=== PATIENT | male | born 1945 | race African-American/Black ===

== ENCOUNTER 2022-08-07 12:11 | Inpatient (IN) | payer OTHER ==
[2022-08-07 14:59] VITALS: BMI 23.7
[2022-08-07] MEDS ORDERED: NICOTINE 10 MG CARTRIDGE (INHALER) IH PRN (16:04)
[2022-08-07] MEDS ORDERED: LOPERAMIDE HCL 2 MG CAPSULE PO PRN (16:04)
[2022-08-07] MEDS ORDERED: ACETAMINOPHEN 325 MG TABLET (FP) PO PRN (16:04)
[2022-08-07] MEDS ORDERED: MAGNESIUM HYDROX 2400MG/30ML ORAL SUSPENSION 30 ML CUP PO PRN (16:04)
[2022-08-07] MEDS ORDERED: P-EPHED 60MG/TRIPROLIDI 2.5MG TABLET PO PRN (16:04)
[2022-08-07] MEDS ORDERED: IBUPROFEN 400 MG TABLET (FP) PO PRN (16:04)
[2022-08-07] MEDS ORDERED: guaiFENesin 200 MG/10 ML 10 ML UNIT-DOSE CUPS PO PRN (16:04)
[2022-08-07] MEDS ORDERED: MAGNESIUM CITRATE 300 ML BOTTLE PO PRN (16:04)
[2022-08-07] MEDS ORDERED: hydrOXYzine PAMOATE 25 MG CAPSULE (FP) PO PRN (16:04)
[2022-08-07] MEDS ORDERED: MELATONIN 5 MG TABLETS PO SCH (22:00)
[2022-08-07] MEDS: PRENATAL VITAMINS W/ FOLIC ACID TABLET (FP) PO SCH (22:06)
[2022-08-07] MEDS: THIAMINE HCL 100 MG TABLET (FP) PO SCH (22:06)
[2022-08-07] MEDS: NICOTINE 21 MG/24 HOURS TOPICAL PATCH TD SCH (22:06)
[2022-08-08 10:39] LABS: BLOOD UREA NITROGEN 15.3 mg/dL (7-18); CALCIUM 9.3 mg/dL (8.5-10.1)
[2022-08-08 10:40] LABS: ALBUMIN 3.8 g/dl (3.4-5.0); HEMATOCRIT 40.7 % (35.4-49); HEMOGLOBIN 14.1 GM/dL (11.7-16.9); MCH 30.1 pg (25.7-33.7); MCHC 34.7 g/dl (32.0-35.9); MEAN CELL VOLUME 86.6 fl (80-96); MEAN PLT VOLUME 8.7 fl (7.5-11.1); PLATELET COUNT 185 10^3/uL (134-434); RDW 13.5 % (11.9-15.9); WHITE BLOOD COUNT 4.4 K/mm3 (4.0-10.0)
[2022-08-08 10:43] LABS: CREATININE 0.9 mg/dL (0.55-1.3)
[2022-08-08 10:45] LABS: BILIRUBIN,TOTAL 0.4 mg/dL (0.2-1); TOT PROT 6.8 g/dl (6.4-8.2)
[2022-08-08 10:56] LABS: EPI CELLS 4 /uL (0-25.1); HYALINE CASTS 1 /uL (0-3.1); PH,URINE 6.5 (5.0-8.0); URINE APPEARANCE CLEAR; URINE BACTERIA 4 /uL (0-1359); URINE BILIRUBIN NEGATIVE (NEGATIVE); URINE COLOR YELLOW; URINE GLUCOSE (UA) NEGATIVE (NEGATIVE); URINE KETONE NEGATIVE (NEGATIVE); URINE LEUK ESTERASE TRACE (NEGATIVE); URINE NITRITE NEGATIVE (NEGATIVE); URINE PROTEIN NEGATIVE (NEGATIVE); URINE RBC 2 /uL (0-23.9); URINE WBC 32 /uL (0-25.8)
[2022-08-08] MEDS: PRENATAL VITAMINS W/ FOLIC ACID TABLET (FP) PO SCH ×2 (11:14→11:20)
[2022-08-08] MEDS: NICOTINE 21 MG/24 HOURS TOPICAL PATCH TD SCH ×2 (11:14→11:20)
[2022-08-08 12:25] LABS: SYPHILIS W/ RPR CONF NON-REACTIVE (NONREACTIVE)
[2022-08-08] MEDS: ATENOLOL 50 MG TABLET (FP) PO SCH (18:57)
[2022-08-08] MEDS: THIAMINE HCL 100 MG TABLET (FP) PO SCH (21:20)
[2022-08-08] MEDS: traZODone HCL 50 MG TABLET (FP) PO SCH (21:21)
[2022-08-09] MEDS: PRENATAL VITAMINS W/ FOLIC ACID TABLET (FP) PO SCH (10:33)
[2022-08-09] MEDS: ATENOLOL 50 MG TABLET (FP) PO SCH (10:33)
[2022-08-09] MEDS: NICOTINE 21 MG/24 HOURS TOPICAL PATCH TD SCH (10:33)
[2022-08-09] MEDS: THIAMINE HCL 100 MG TABLET (FP) PO SCH (21:39)
[2022-08-09] MEDS: traZODone HCL 50 MG TABLET (FP) PO SCH (21:39)
[2022-08-10] MEDS: PRENATAL VITAMINS W/ FOLIC ACID TABLET (FP) PO SCH (10:20)
[2022-08-10] MEDS: NICOTINE 21 MG/24 HOURS TOPICAL PATCH TD SCH (10:21)
[2022-08-10] MEDS: ATENOLOL 50 MG TABLET (FP) PO SCH (10:21)
[2022-08-10] MEDS: THIAMINE HCL 100 MG TABLET (FP) PO SCH (21:15)
[2022-08-10] MEDS: traZODone HCL 50 MG TABLET (FP) PO SCH (21:16)
[2022-08-11] MEDS: PRENATAL VITAMINS W/ FOLIC ACID TABLET (FP) PO SCH (09:43)
[2022-08-11] MEDS: NICOTINE 21 MG/24 HOURS TOPICAL PATCH TD SCH (09:44)
[2022-08-11] MEDS: ATENOLOL 50 MG TABLET (FP) PO SCH ×2 (09:44→14:48)
[2022-08-11] MEDS: traZODone HCL 50 MG TABLET (FP) PO SCH (21:33)
[2022-08-11] MEDS: THIAMINE HCL 100 MG TABLET (FP) PO SCH (21:33)
[2022-08-12] MEDS: ATENOLOL 50 MG TABLET (FP) PO SCH (10:20)
[2022-08-12] MEDS: PRENATAL VITAMINS W/ FOLIC ACID TABLET (FP) PO SCH (10:20)
[2022-08-12] MEDS: NICOTINE 21 MG/24 HOURS TOPICAL PATCH TD SCH (10:21)
[2022-08-12] MEDS: traZODone HCL 50 MG TABLET (FP) PO SCH (21:31)
[2022-08-12] MEDS: THIAMINE HCL 100 MG TABLET (FP) PO SCH (21:31)
[2022-08-13] MEDS: PRENATAL VITAMINS W/ FOLIC ACID TABLET (FP) PO SCH (10:31)
[2022-08-13] MEDS: NICOTINE 21 MG/24 HOURS TOPICAL PATCH TD SCH (10:31)
[2022-08-13] MEDS: ATENOLOL 50 MG TABLET (FP) PO SCH (10:33)
[2022-08-13] MEDS: THIAMINE HCL 100 MG TABLET (FP) PO SCH (21:27)
[2022-08-13] MEDS: traZODone HCL 50 MG TABLET (FP) PO SCH (21:27)
[2022-08-14] MEDS: MAG HYDROX/AL HYDROX/SIMETH 30 ML UNIT-DOSE CUP PO PRN (08:47)
[2022-08-14] MEDS: NICOTINE 21 MG/24 HOURS TOPICAL PATCH TD SCH (09:46)
[2022-08-14] MEDS: ATENOLOL 50 MG TABLET (FP) PO SCH (09:47)
[2022-08-14] MEDS: PRENATAL VITAMINS W/ FOLIC ACID TABLET (FP) PO SCH (09:47)
[2022-08-14] MEDS: traZODone HCL 50 MG TABLET (FP) PO SCH (21:20)
[2022-08-14] MEDS: THIAMINE HCL 100 MG TABLET (FP) PO SCH (21:20)
[2022-08-15] MEDS: PRENATAL VITAMINS W/ FOLIC ACID TABLET (FP) PO SCH (10:32)
[2022-08-15] MEDS: ATENOLOL 50 MG TABLET (FP) PO SCH (10:33)
[2022-08-15] MEDS: NICOTINE 21 MG/24 HOURS TOPICAL PATCH TD SCH (10:33)
[2022-08-15] MEDS: THIAMINE HCL 100 MG TABLET (FP) PO SCH (21:29)
[2022-08-15] MEDS: traZODone HCL 50 MG TABLET (FP) PO SCH (21:30)
[2022-08-16] MEDS: PRENATAL VITAMINS W/ FOLIC ACID TABLET (FP) PO SCH (10:18)
[2022-08-16] MEDS: ATENOLOL 50 MG TABLET (FP) PO SCH (10:18)
[2022-08-16] MEDS: NICOTINE 21 MG/24 HOURS TOPICAL PATCH TD SCH (10:18)
[2022-08-16] MEDS: THIAMINE HCL 100 MG TABLET (FP) PO SCH (21:18)
[2022-08-16] MEDS: traZODone HCL 50 MG TABLET (FP) PO SCH (21:18)
[2022-08-17] MEDS: NICOTINE 21 MG/24 HOURS TOPICAL PATCH TD SCH (10:14)
[2022-08-17] MEDS: PRENATAL VITAMINS W/ FOLIC ACID TABLET (FP) PO SCH (10:15)
[2022-08-17] MEDS: ATENOLOL 50 MG TABLET (FP) PO SCH (10:15)
[2022-08-17] MEDS: THIAMINE HCL 100 MG TABLET (FP) PO SCH (21:17)
[2022-08-17] MEDS: traZODone HCL 50 MG TABLET (FP) PO SCH (21:17)
[2022-08-18] MEDS: PRENATAL VITAMINS W/ FOLIC ACID TABLET (FP) PO SCH (09:35)
[2022-08-18] MEDS: NICOTINE 21 MG/24 HOURS TOPICAL PATCH TD SCH (09:35)
[2022-08-18] MEDS: ATENOLOL 50 MG TABLET (FP) PO SCH (09:36)
[2022-08-18] MEDS: traZODone HCL 50 MG TABLET (FP) PO SCH (21:38)
[2022-08-18] MEDS: THIAMINE HCL 100 MG TABLET (FP) PO SCH (21:38)
[2022-08-19] MEDS: PRENATAL VITAMINS W/ FOLIC ACID TABLET (FP) PO SCH (09:58)
[2022-08-19] MEDS: NICOTINE 21 MG/24 HOURS TOPICAL PATCH TD SCH (09:58)
[2022-08-19] MEDS: ATENOLOL 50 MG TABLET (FP) PO SCH (09:59)
[2022-08-19] MEDS: THIAMINE HCL 100 MG TABLET (FP) PO SCH (21:16)
[2022-08-19] MEDS: traZODone HCL 50 MG TABLET (FP) PO SCH (21:16)
[2022-08-20] MEDS: ATENOLOL 50 MG TABLET (FP) PO SCH (09:44)
[2022-08-20] MEDS: PRENATAL VITAMINS W/ FOLIC ACID TABLET (FP) PO SCH (09:44)
[2022-08-20] MEDS: NICOTINE 21 MG/24 HOURS TOPICAL PATCH TD SCH (09:45)
[2022-08-20] MEDS: traZODone HCL 50 MG TABLET (FP) PO SCH (21:05)
[2022-08-20] MEDS: THIAMINE HCL 100 MG TABLET (FP) PO SCH (21:05)
[2022-08-21] MEDS: NICOTINE 21 MG/24 HOURS TOPICAL PATCH TD SCH (09:49)
[2022-08-21] MEDS: PRENATAL VITAMINS W/ FOLIC ACID TABLET (FP) PO SCH (09:49)
[2022-08-21] MEDS: ATENOLOL 50 MG TABLET (FP) PO SCH (12:26)
[2022-08-21] MEDS: THIAMINE HCL 100 MG TABLET (FP) PO SCH (21:50)
[2022-08-21] MEDS: traZODone HCL 50 MG TABLET (FP) PO SCH (21:50)
[2022-08-22] MEDS: ATENOLOL 50 MG TABLET (FP) PO SCH (09:54)
[2022-08-22] MEDS: PRENATAL VITAMINS W/ FOLIC ACID TABLET (FP) PO SCH (09:55)
[2022-08-22] MEDS: NICOTINE 21 MG/24 HOURS TOPICAL PATCH TD SCH (09:55)
[2022-08-22] MEDS: traZODone HCL 50 MG TABLET (FP) PO SCH (21:05)
[2022-08-22] MEDS: THIAMINE HCL 100 MG TABLET (FP) PO SCH (21:05)
[2022-08-23] MEDS: PRENATAL VITAMINS W/ FOLIC ACID TABLET (FP) PO SCH (10:11)
[2022-08-23] MEDS: ATENOLOL 50 MG TABLET (FP) PO SCH (10:11)
[2022-08-23] MEDS: NICOTINE 21 MG/24 HOURS TOPICAL PATCH TD SCH (10:11)
[2022-08-23] MEDS: THIAMINE HCL 100 MG TABLET (FP) PO SCH (21:08)
[2022-08-23] MEDS: traZODone HCL 50 MG TABLET (FP) PO SCH (21:08)
[2022-08-24] MEDS: PRENATAL VITAMINS W/ FOLIC ACID TABLET (FP) PO SCH (09:34)
[2022-08-24] MEDS: NICOTINE 21 MG/24 HOURS TOPICAL PATCH TD SCH (09:34)
[2022-08-24] MEDS: ATENOLOL 50 MG TABLET (FP) PO SCH (09:36)
[2022-08-24] MEDS: THIAMINE HCL 100 MG TABLET (FP) PO SCH (21:05)
[2022-08-24] MEDS: traZODone HCL 50 MG TABLET (FP) PO SCH (21:05)
[2022-08-25] MEDS: PRENATAL VITAMINS W/ FOLIC ACID TABLET (FP) PO SCH (09:43)
[2022-08-25] MEDS: ATENOLOL 50 MG TABLET (FP) PO SCH (09:43)
[2022-08-25] MEDS: NICOTINE 21 MG/24 HOURS TOPICAL PATCH TD SCH (09:44)
[2022-08-25] MEDS: traZODone HCL 50 MG TABLET (FP) PO SCH (21:20)
[2022-08-25] MEDS: THIAMINE HCL 100 MG TABLET (FP) PO SCH (21:20)
[2022-08-26] MEDS: ATENOLOL 50 MG TABLET (FP) PO SCH (09:47)
[2022-08-26] MEDS: PRENATAL VITAMINS W/ FOLIC ACID TABLET (FP) PO SCH (09:47)
[2022-08-26] MEDS: NICOTINE 21 MG/24 HOURS TOPICAL PATCH TD SCH (09:47)
[2022-08-26] MEDS: MAG HYDROX/AL HYDROX/SIMETH 30 ML UNIT-DOSE CUP PO PRN (19:41)
[2022-08-26] MEDS: THIAMINE HCL 100 MG TABLET (FP) PO SCH (21:26)
[2022-08-26] MEDS: traZODone HCL 50 MG TABLET (FP) PO SCH (21:26)
[2022-08-27] MEDS: PRENATAL VITAMINS W/ FOLIC ACID TABLET (FP) PO SCH (09:56)
[2022-08-27] MEDS: NICOTINE 21 MG/24 HOURS TOPICAL PATCH TD SCH (09:57)
[2022-08-27] MEDS: ATENOLOL 50 MG TABLET (FP) PO SCH (09:57)
[2022-08-27] MEDS: THIAMINE HCL 100 MG TABLET (FP) PO SCH (21:26)
[2022-08-27] MEDS: traZODone HCL 50 MG TABLET (FP) PO SCH (21:27)
[2022-08-28] MEDS: NICOTINE 21 MG/24 HOURS TOPICAL PATCH TD SCH (09:41)
[2022-08-28] MEDS: PRENATAL VITAMINS W/ FOLIC ACID TABLET (FP) PO SCH (09:41)
[2022-08-28] MEDS: ATENOLOL 50 MG TABLET (FP) PO SCH (09:42)
[2022-08-28] MEDS: traZODone HCL 50 MG TABLET (FP) PO SCH (21:10)
[2022-08-28] MEDS: THIAMINE HCL 100 MG TABLET (FP) PO SCH (21:11)
[2022-08-29] MEDS: ATENOLOL 50 MG TABLET (FP) PO SCH (10:21)
[2022-08-29] MEDS: PRENATAL VITAMINS W/ FOLIC ACID TABLET (FP) PO SCH (10:21)
[2022-08-29] MEDS: NICOTINE 21 MG/24 HOURS TOPICAL PATCH TD SCH (10:21)
[2022-08-29] MEDS ORDERED: CLOPIDOGREL BISULFATE 300 MG TABLET PO SCH (10:30)
[2022-08-29] MEDS: THIAMINE HCL 100 MG TABLET (FP) PO SCH (21:02)
[2022-08-29] MEDS: traZODone HCL 50 MG TABLET (FP) PO SCH (21:02)
[2022-08-30] MEDS: PRENATAL VITAMINS W/ FOLIC ACID TABLET (FP) PO SCH (10:12)
[2022-08-30] MEDS: NICOTINE 21 MG/24 HOURS TOPICAL PATCH TD SCH (10:12)
[2022-08-30] MEDS: ATENOLOL 50 MG TABLET (FP) PO SCH (10:13)
[2022-08-30] MEDS: CLOPIDOGREL BISULFATE 75 MG TABLET (FP) PO SCH (10:13)
[2022-08-30] MEDS: traZODone HCL 50 MG TABLET (FP) PO SCH (21:09)
[2022-08-30] MEDS: THIAMINE HCL 100 MG TABLET (FP) PO SCH (21:09)
[2022-08-31] MEDS: CLOPIDOGREL BISULFATE 75 MG TABLET (FP) PO SCH (09:56)
[2022-08-31] MEDS: NICOTINE 21 MG/24 HOURS TOPICAL PATCH TD SCH (09:56)
[2022-08-31] MEDS: PRENATAL VITAMINS W/ FOLIC ACID TABLET (FP) PO SCH (09:57)
[2022-08-31] MEDS: ATENOLOL 50 MG TABLET (FP) PO SCH (09:57)
[2022-08-31] MEDS: THIAMINE HCL 100 MG TABLET (FP) PO SCH (21:03)
[2022-08-31] MEDS: traZODone HCL 50 MG TABLET (FP) PO SCH (21:03)
[2022-09-01 06:49] VITALS: RESP 18
[2022-09-01 09:08] VITALS: BP 117/62; PULSE 83; TEMP 97.7
[2022-09-01] MEDS: NICOTINE 21 MG/24 HOURS TOPICAL PATCH TD SCH (09:57)
[2022-09-01] MEDS: CLOPIDOGREL BISULFATE 75 MG TABLET (FP) PO SCH (09:57)
[2022-09-01] MEDS: PRENATAL VITAMINS W/ FOLIC ACID TABLET (FP) PO SCH (09:58)
[2022-09-01] MEDS: ATENOLOL 50 MG TABLET (FP) PO SCH (09:58)
== END 2022-09-01 10:48 | disposition home or self-care (01) | DRG 895 ==
LOC: YASAS 12:11 → Y3W 20:47
PROVIDERS: ADMIT Allergy & Immunology; ATTEND Psychiatry & Neurology Pain Medicine
PROC: HZ42ZZZ Group Counseling for Substance Abuse Treatment, Cognitive-Behavioral (ICD-10-PCS; principal; 2022-08-07)
DX: F10.20 Alcohol dependence, uncomplicated (principal); F14.20 Cocaine dependence, uncomplicated; F17.210 Nicotine dependence, cigarettes, uncomplicated; F41.8 Other specified anxiety disorders; E78.5 Hyperlipidemia, unspecified; I25.10 Atherosclerotic heart disease of native coronary artery without angina pectoris; I10 Essential (primary) hypertension; Z95.5 Presence of coronary angioplasty implant and graft; M40.209 Unspecified kyphosis, site unspecified; M54.50 Low back pain, unspecified; G89.29 Other chronic pain; Z91.81 History of falling; Z99.89 Dependence on other enabling machines and devices
CPT/HCPCS: 36415; 71046-TC-FY; 80053; 81003; 82962; 85027; 86780; 86803; C9803-CS; U0003; U0005